=== PATIENT | male | born 1965 | race African-American/Black ===

== ENCOUNTER 2018-07-14 09:03 | Emergency (ER) | payer MEDICAID ==
[~2018-07-14] VITALS: Ht 165.1 cm; Wt 59.0 kg
[2018-07-14] MEDS ORDERED: MORPHINE SULFATE 4 MG/ML CPJ (NOT FOR IM USE) IV STA (09:25)
[2018-07-14] MEDS ORDERED: SODIUM CHLORIDE 0.9% 1,000 ML IV ONE ×2 (09:25)
[2018-07-14] MEDS ORDERED: ONDANSETRON HCL 4MG/2ML INJ IV STA (09:25)
[2018-07-14 12:25] LABS: HEMATOCRIT. 38.8 % (42.0-52.0); HEMOGLOBIN. 13.1 g/dL (14.0-18.0); MEAN CORPUSCULAR VOLUME 94.7 fL (80.0-94.0); MEAN PLATELET VOLUME 8.7 fl (7.4-10.4); PLATELET 161 x1000/uL (130-400); RED BLOOD CELL COUNT 4.09 mill/uL (4.7-6.1); RED CELL DISTRIBUTION WIDTH 13.9 % (11.6-14.6)
[2018-07-14 12:32] LABS: CHLORIDE 109 mEq/L (98-107); PROTHROMBIN TIME 10.2 sec (9.1-11.1)
[2018-07-14 12:37] LABS: CLARITY URINE CLEAR (CLEAR); COLOR URINE YELLOW (YELLOW); KETONES URINE TRACE (NEGATIVE); LEUKOCYTE ESTERASE URINE NEGATIVE (NEGATIVE); NITRITE URINE NEGATIVE (NEGATIVE); OCCULT BLOOD URINE TRACE (NEGATIVE); PROTEIN URINE NEGATIVE (NEGATIVE); SPECIFIC GRAVITY URINE 1.021 (1.005-1.030); UROBILINOGEN URINE 0.2 E.U./dL (0.2-1.0)
[2018-07-14 13:03] LABS: PLATELET ESTIMATE NORMAL
[2018-07-14] MEDS ORDERED: IOHEXOL-300 100 ML BOTTLE ONE (13:47)
[2018-07-14] MEDS ORDERED: LEVOFLOXACIN 750MG PREMIX 150 ML IV NR (14:15)
[2018-07-14] MEDS ORDERED: METRONIDAZOLE 500 MG PREMIX 100 ML IV NR (14:16)
[2018-07-14] MEDS ORDERED: ONDANSETRON HCL 4MG/2ML INJ IV ONE (17:45)
[2018-07-14 17:52] VITALS: BP 133/75
== END 2018-07-14 18:11 | disposition home or self-care (01) ==
LOC: EDBD 09:03 → ER 09:03
DX: K57.32 Diverticulitis of large intestine without perforation or abscess without bleeding (principal); D72.829 Elevated white blood cell count, unspecified; F17.200 Nicotine dependence, unspecified, uncomplicated; F12.20 Cannabis dependence, uncomplicated; Z98.890 Other specified postprocedural states
CPT/HCPCS: 36415; 74177; 80053; 81003; 83690; 85025; 85610; 96361; 96365; 96367; 96375; 96376; 99285; J1956; J2270; J2405; J3490; J7030; Q9967